=== PATIENT | female | born 2000 | race American Indian/Alaskan Native ===

== ENCOUNTER 2021-05-18 14:21 | Observation (INO) | payer MEDICAID ==
[2021-05-18] MEDS ORDERED: LACTATED RINGERS 500 ML IV ONE (15:58)
[2021-05-18 17:25] LABS: Bacteria,Urine 1+ /HPF (Negative); Bilirubin,Urine NEG (Negative); Blood,Urine NEG (Negative); Color,Urine Yellow (Yellow); Mucus,Urine 3+ /HPF; Urobilinogen,Urine < 2.0 mg/dL (<2.0)
[2021-05-18 17:32] LABS: Alanine Aminotransferase 10 units/L (7-56); Hemoglobin 12.8 gm/dl (10.1-14.3); Mean Corpuscular HGB Conc 34 % (30-34); Mean Corpuscular Volume 90 fl (79-97); Platelet Count 273 K/mm3 (140-440); Red Blood Count 4.22 M/mm3 (3.65-5.03); Red Cell Distribution Width 14.3 % (13.2-15.2); Uric Acid 3.7 mg/dL (3.5-7.6)
[2021-05-18 19:45] VITALS: BP 145/78
== END 2021-05-18 19:25 | disposition home or self-care (01) ==
LOC: TRG 14:21 → APU 14:29 → INTOOBSV 14:29
DX: O13.3 Gestational [pregnancy-induced] hypertension without significant proteinuria, third trimester (principal); Z3A.36 36 weeks gestation of pregnancy
CPT/HCPCS: 36415; 59025; 81001; 82565; 83615; 84450; 84460; 84550; 85027; 86850; 86900; 86901; G0378

== ENCOUNTER 2021-05-24 17:05 | Outpatient (CLI) | payer MEDICAID ==
[2021-05-24 21:25] VITALS: BP 147/77
--- NOTE | 2021-05-24 22:36 | Ultrasound Report ---
ULTRASOUND BIOPHYSICAL PROFILE INDICATION: DIMITRY. COMPARISON: None available. FINDINGS: breathing movement = 2 Gross body movement = 2 tone = 2 Qualitative amniotic fluid volume = 2 Total biophysical score = 8/8 Amniotic fluid index is 14.7 cm. Presentation is Cephalic. heart rate is 135 beats per minute. IMPRESSION: biophysical profile = 04/23 Amniotic fluid index is within normal limits at 14.7 cm. Signer Name: Jaskaran Abdul MD Signed: 05/24/2021 10:32 PM Workstation Name: [id number]
== END 2021-05-24 21:59 | disposition home or self-care (01) ==
LOC: TRG 17:05 → APU 17:07 → TRG 21:59
PROVIDERS: ATTEND Obstetrics & Gynecology
DX: Z34.93 Encounter for supervision of normal pregnancy, unspecified, third trimester (principal); Z3A.37 37 weeks gestation of pregnancy
CPT/HCPCS: 36415; 59025; 76815; 76819; 84112

== ENCOUNTER 2021-05-31 19:08 | Inpatient (IN) | payer MEDICAID ==
[2021-05-31] MEDS ORDERED: OXYTOCIN 10 UNIT/1 ML INJ IM PRN (21:28)
[2021-05-31] MEDS ORDERED: miSOPROStol 200 MCG TAB PR PRN (21:28)
[2021-05-31] MEDS ORDERED: TERBUTALINE 1 MG/1 ML INJ SUB-Q PRN (21:28)
[2021-05-31] MEDS ORDERED: fentaNYL 100 MCG/2 ML INJ IV PRN (21:28)
[2021-05-31] MEDS ORDERED: CARBOPROST TROMETHAMINE 250 MCG/1 ML INJ IM PRN (21:28)
[2021-05-31] MEDS ORDERED: ePHEDrine SULFATE 50 MG/1 ML INJ IV PRN (21:28)
[2021-05-31] MEDS ORDERED: DINOPROSTONE 10 MG VAG SUPP VG ONE (21:28)
[2021-05-31] MEDS ORDERED: ACETAMINOPHEN 325 MG TAB PO PRN (21:28)
[2021-05-31] MEDS ORDERED: MINERAL OIL 30 ML ORAL LIQD PO PRN (21:28)
[2021-05-31] MEDS ORDERED: LIDOCAINE (2%) 20 MG/1 ML VIAL 20 ML MDV INFILTRATI ONE (21:28)
[2021-05-31] MEDS ORDERED: LOPERAMIDE 2 MG CAP PO PRN (21:28)
[2021-05-31] MEDS ORDERED: METHYLERGONOVINE MALEATE 0.2 MG/ML VIAL IM PRN (21:28)
[2021-05-31] MEDS ORDERED: BUTORPHANOL 2 MG/1 ML INJ IV PRN (21:28)
[2021-05-31] MEDS ORDERED: OXYTOCIN DRIP 30 UNITS/500 ML BAG IV SCH (22:00)
[2021-05-31 22:32] LABS: Hematocrit 37.9 % (30.3-42.9); Hemoglobin 12.8 gm/dl (10.1-14.3); Mean Corpuscular HGB Conc 34 % (30-34); Mean Corpuscular Volume 90 fl (79-97); Platelet Count 263 K/mm3 (140-440); Red Blood Count 4.23 M/mm3 (3.65-5.03); Red Cell Distribution Width 14.3 % (13.2-15.2)
[2021-05-31 22:39] LABS: Bilirubin,Urine NEG (Negative); Blood,Urine NEG (Negative); Color,Urine Yellow (Yellow); Mucus,Urine FEW /HPF; Urobilinogen,Urine < 2.0 mg/dL (<2.0)
[2021-05-31] MEDS: LACTATED RINGERS 1,000 ML IV SCH (22:51)
[2021-05-31 22:57] LABS: Alanine Aminotransferase 9 units/L (7-56)
[2021-05-31] MEDS ORDERED: ACETAMINOPHEN 500 MG TAB PO ONE (23:46)
[2021-06-01] MEDS: BUTORPHANOL 2 MG/1 ML INJ IV PRN ×2 (02:00→06:22)
[2021-06-01] MEDS ORDERED: AMPICILLIN/NS 2 GM/100 ML 2 GM/100 ML BAG IV ONE (04:06)
[2021-06-01] MEDS ORDERED: AMPICILLIN/NS 1 GM/50 ML 1 GM/50 ML BAG IV SCH (08:00)
[2021-06-01] MEDS: LACTATED RINGERS 1,000 ML IV SCH (08:37)
--- NOTE | 2021-06-01 09:16 | History and Physical Report ---
History of Present Illness Date of examination: 06/01/21 Date of admission: 05/31/21 19:52 Chief complaint: Pt presented for an IOL r/t CHTN and GDM History of present illness: 20 y/o presented to [facility] @ 38.2 wks for an IOL r/t GDM and CHTN. She denies LOF and VB. Pt admits to active . She initiated her care at [facility] location @ 12 1/7 wks. Pt was co-managed by [facility] for GDM and CHTN with superimposed preeclampsia. She has a hx of anemia, elevated wbcs (12.9), FL/AC 25 @ 20wks, GBS pos, Lagging HC/BCD below 10th %,and varicella NI. Pt was admitted to L&D for an IOL Past History Past Medical History: other (anemia, GDM, CHTN, elevated wbc,varicella NI) Past Surgical History: no surgical history [employer] History: other (pos GBS) Family/Genetic History: diabetes, hypertension, stroke Social history: single, full code - Obstetrical History Expected Date of Delivery: 06/12/21 Actual Gestation: 38 Week(s) 3 Day(s) : 1 Para: 0 Number of Living Children: 0 Medications and Allergies Allergies Allergy/AdvReac Type Severity Reaction Status Date / Time Latex, Natural Rubber Allergy Severe Anaphylaxis Verified 05/18/21 15:57 Active Meds: Active Medications Acetaminophen (Acetaminophen 325 Mg Tab) 650 mg PO Q4H PRN PRN Reason: Pain, Mild (1-3) Butorphanol Tartrate (Butorphanol 2 Mg/1 Ml Inj) 2 mg IV Q2H PRN PRN Reason: Pain , Severe (7-10) Last Admin: 06/01/21 06:22 Dose: 2 mg Documented by: Butorphanol Tartrate (Butorphanol 2 Mg/1 Ml Inj) 1 mg IV Q2H PRN PRN Reason: Pain, Moderate(4-6) LABOR PAIN Carboprost Tromethamine (Carboprost Tromethamine 250 Mcg/1 Ml Inj) 250 mcg IM ONCE PRN PRN Reason: Uterine Bleeding Ephedrine Sulfate (Ephedrine Sulfate 50 Mg/1 Ml Inj) 10 mg IV Q2M PRN PRN Reason: Hypotension Fentanyl (Fentanyl 100 Mcg/2 Ml Inj) 100 mcg IV Q2H PRN PRN Reason: Pain,Severe (7-10) LABOR PAIN Oxytocin/Sodium Chloride (Pitocin/Ns 30 Unit/500ml) 30 units in 500 mls @ 2 mls/hr IV TITR ZULEMA; Protocol Lactated Ringer's (Lactated Ringers) 1,000 mls @ 125 mls/hr IV DIRECT ZULEMA Last Admin: 06/01/21 08:37 Dose: 125 mls/hr Documented by: Oxytocin/Sodium Chloride (Pitocin/Ns 30 Unit/500ml) 30 units in 500 mls @ 40 mls/hr IV TITR ZULEMA; Protocol Ampicillin Sodium (Ampicillin/Ns 1 Gm/50 Ml) 1 gm in 50 mls @ 100 mls/hr IV Q4H ZULEMA; Protocol Last Admin: 06/01/21 08:37 Dose: 100 mls/hr Documented by: Loperamide HCl (Loperamide 2 Mg Cap) 2 mg PO ONCE PRN PRN Reason: give with Hemabate Methylergonovine Maleate (Methylergonovine Maleate 0.2 Mg/Ml Vial) 0.2 mg IM ONCE PRN PRN Reason: Uterine Bleeding Mineral Oil (Mineral Oil 30 Ml Oral Liqd) 30 ml PO QHS PRN PRN Reason: Constipation Misoprostol (Misoprostol 200 Mcg Tab) 800 mcg DE ONCE PRN PRN Reason: Uterine Bleeding Oxytocin (Oxytocin 10 Unit/1 Ml Inj) 10 unit IM ONCE PRN PRN Reason: Uterine Bleeding Terbutaline Sulfate (Terbutaline 1 Mg/1 Ml Inj) 0.25 mg SUB-Q ONCE PRN PRN Reason: Hyperstimulation/Hypertonicity Review of Systems All systems: negative Eyes: deferred Ears, nose, mouth and throat: deferred Breasts: normal Genitourinary: normal appearance Rectal Exam: normal exam-external/orifice - Vital Signs Vital signs: Vital Signs Pulse Pulse Ox 108 H 93 05/31/21 20:13 05/31/21 20:13 Temp Pulse Resp BP Pulse Ox 98.3 F 131 H 139/64 99 06/01/21 02:47 06/01/21 09:13 06/01/21 08:59 06/01/21 09:13 - Physical Exam Breasts: Positive: normal Abdomen: Positive: normal appearance, soft, normal bowel sounds Genitourinary (Female): Positive: normal external genitalia, normal perenium Vulva: both: normal Vagina: Positive: normal moisture Uterus: Positive: enlarged, normal contour, other (GRAVID) Adnexa: both: normal Anus/Rectum: Positive: normal perianal skin Extremities: Positive: normal - Obstetrical FHR: auscultation normal, category 1 Uterine Contraction Monitor Mode: External Cervical Dilatation: 0 Cervical Effacement Percentage: 10 station: -3 Uterine Contraction Pattern: Regular Uterine Tone Measurement Phase: Resting Uterine Contraction Intensity: Strong/Firm Results Result Diagrams: 05/31/21 20:45 05/31/21 20:45 Abnormal lab results 05/31/21 05/31/21 Range/Units 20:45 20:45 WBC 11.8 H (4.5-11.0) K/mm3 Creatinine 0.5 L (0.6-1.2) mg/dL All other labs normal. Assessment and Plan A: IUP@ 38.3 wks GDM CHTN with superimposed preeclampsia Hx Elevated WBC GBS pos Varicella NI p: Admiit to L&D for a cervidil IOL Continuos monitoring GBS protocal FSBS Q4 Offer varicella vaccine pp Notify NICU Anticipate - Patient Problems (1) Supervision of normal IUP (intrauterine ) in primigravida Current Visit: Yes Status: Acute (2) GDM (gestational diabetes mellitus) Current Visit: Yes Status: Acute (3) Chronic hypertension affecting Current Visit: Yes Status: Acute (4) Positive GBS test Current Visit: Yes Status: Acute
[2021-06-01] MEDS ORDERED: LIDOCAINE (2%) 20 MG/1 ML VIAL 20 ML MDV INFILTRATI ONE (09:37)
[2021-06-01] MEDS: OXYTOCIN DRIP 30 UNITS/500 ML BAG IV SCH ×2 (10:02→10:36)
--- NOTE | 2021-06-01 11:07 | Progress Note ---
Assessment and Plan A: IUP@ 38.3 wks GDM with CHTN Pos GBS Hx elevated wbc Varicella NI Tachycardia p: Continue monitoring GBS protocal IVF bolus EKG and UA C&S Offer Varicella PP Anticipate Consulted Dr Benedict - Patient Problems (1) Supervision of normal IUP (intrauterine ) in primigravida Current Visit: Yes Status: Acute (2) GDM (gestational diabetes mellitus) Current Visit: Yes Status: Acute (3) Chronic hypertension affecting Current Visit: Yes Status: Acute (4) Positive GBS test Current Visit: Yes Status: Acute Subjective - Subjective Date of service: 06/01/21 Principal diagnosis: IUP@ 38.3 wks Interval history: 20 y/o presented to [facility] @ 38.2 wks for an IOL r/t GDM and CHTN. She denies LOF and VB. Pt admits to active FM. She initiated her care at [facility] location @ 12 1/7 wks. Pt was co-managed by [facility] for GDM and CHTN with superimposed preeclampsia. She has a hx of anemia, elevated wbcs (12.9), FL/AC 25 @ 20wks, GBS pos, Lagging HC/BCD below 10th %,and varicella NI. Pt was admitted to L&D for an IOL Patient reports: movement normal, contractions Objective - Vital Signs Vital Signs: Vital Signs - 12hr 05/31/21 05/31/21 05/31/21 23:02 23:07 23:12 Temperature Pulse Rate 110 H 123 H 117 H Blood Pressure O2 Sat by Pulse 99 99 99 Oximetry 05/31/21 05/31/21 05/31/21 23:17 23:22 23:27 Temperature Pulse Rate 105 H 121 H 112 H Blood Pressure O2 Sat by Pulse 99 99 99 Oximetry 05/31/21 05/31/21 05/31/21 23:30 23:32 23:37 Temperature 99.2 F Pulse Rate 118 H 134 H Blood Pressure O2 Sat by Pulse 99 100 Oximetry 05/31/21 05/31/21 05/31/21 23:42 23:43 23:47 Temperature Pulse Rate 148 H 142 H 136 H Blood Pressure 146/71 O2 Sat by Pulse 99 99 Oximetry 05/31/21 05/31/21 05/31/21 23:52 23:57 23:59 Temperature Pulse Rate 124 H 126 H 126 H Blood Pressure 143/72 177/89 O2 Sat by Pulse 100 99 Oximetry 06/01/21 06/01/21 06/01/21 00:02 00:07 00:12 Temperature Pulse Rate 134 H 127 H 127 H Blood Pressure O2 Sat by Pulse 99 99 100 Oximetry 06/01/21 06/01/21 06/01/21 00:17 00:22 00:27 Temperature Pulse Rate 127 H 127 H 129 H Blood Pressure O2 Sat by Pulse 100 99 99 Oximetry 06/01/21 06/01/21 06/01/21 00:29 00:32 00:34 Temperature Pulse Rate 126 H 130 H 125 H Blood Pressure 156/85 160/87 O2 Sat by Pulse 98 Oximetry 06/01/21 06/01/21 06/01/21 00:36 00:47 00:52 Temperature Pulse Rate 125 H 114 H 131 H Blood Pressure 150/68 O2 Sat by Pulse 0 L 99 Oximetry 06/01/21 06/01/21 06/01/21 00:57 00:59 01:02 Temperature Pulse Rate 132 H 127 H 130 H Blood Pressure 138/69 O2 Sat by Pulse 99 99 Oximetry 06/01/21 06/01/21 06/01/21 01:07 01:12 01:17 Temperature Pulse Rate 139 H 129 H 132 H Blood Pressure O2 Sat by Pulse 98 98 99 Oximetry 06/01/21 06/01/21 06/01/21 01:22 01:27 01:29 Temperature Pulse Rate 139 H 134 H 127 H Blood Pressure 145/66 O2 Sat by Pulse 99 99 Oximetry 06/01/21 06/01/21 06/01/21 01:32 01:37 01:42 Temperature Pulse Rate 130 H 130 H 130 H Blood Pressure O2 Sat by Pulse 98 99 99 Oximetry 06/01/21 06/01/21 06/01/21 01:47 01:52 01:57 Temperature Pulse Rate 138 H 129 H 130 H Blood Pressure O2 Sat by Pulse 98 99 98 Oximetry 06/01/21 06/01/21 06/01/21 01:59 02:02 02:17 Temperature Pulse Rate 127 H 133 H 140 H Blood Pressure 131/63 O2 Sat by Pulse 98 99 Oximetry 06/01/21 06/01/21 06/01/21 02:22 02:27 02:29 Temperature Pulse Rate 132 H 135 H 136 H Blood Pressure 145/66 O2 Sat by Pulse 99 99 Oximetry 06/01/21 06/01/21 06/01/21 02:32 02:37 02:42 Temperature Pulse Rate 135 H 140 H 142 H Blood Pressure O2 Sat by Pulse 99 99 99 Oximetry 06/01/21 06/01/21 06/01/21 02:47 02:52 02:57 Temperature 98.3 F Pulse Rate 134 H 145 H 132 H Blood Pressure O2 Sat by Pulse 99 98 99 Oximetry 06/01/21 06/01/21 06/01/21 02:59 03:00 03:02 Temperature Pulse Rate 136 H 136 H 142 H Blood Pressure 159/77 145/68 O2 Sat by Pulse 98 Oximetry 06/01/21 06/01/21 06/01/21 03:07 03:12 03:17 Temperature Pulse Rate 129 H 130 H 129 H Blood Pressure O2 Sat by Pulse 97 99 98 Oximetry 06/01/21 06/01/21 06/01/21 03:22 03:27 03:30 Temperature Pulse Rate 131 H 136 H 131 H Blood Pressure 145/67 O2 Sat by Pulse 99 98 Oximetry 06/01/21 06/01/21 06/01/21 03:32 03:37 03:42 Temperature Pulse Rate 134 H 130 H 130 H Blood Pressure O2 Sat by Pulse 98 98 98 Oximetry 06/01/21 06/01/21 06/01/21 03:47 03:52 03:57 Temperature Pulse Rate 128 H 132 H 134 H Blood Pressure O2 Sat by Pulse 97 98 98 Oximetry 06/01/21 06/01/21 06/01/21 03:59 04:02 04:07 Temperature Pulse Rate 131 H 132 H 134 H Blood Pressure 146/67 O2 Sat by Pulse 99 99 Oximetry 06/01/21 06/01/21 06/01/21 04:12 04:17 04:22 Temperature Pulse Rate 131 H 138 H 133 H Blood Pressure O2 Sat by Pulse 99 99 99 Oximetry 06/01/21 06/01/21 06/01/21 04:27 04:29 04:32 Temperature Pulse Rate 130 H 134 H 130 H Blood Pressure 143/66 O2 Sat by Pulse 98 99 Oximetry 06/01/21 06/01/21 06/01/21 04:37 04:42 04:47 Temperature Pulse Rate 131 H 135 H 131 H Blood Pressure O2 Sat by Pulse 98 99 98 Oximetry 06/01/21 06/01/21 06/01/21 04:52 04:57 04:59 Temperature Pulse Rate 131 H 131 H 129 H Blood Pressure 148/65 O2 Sat by Pulse 98 99 Oximetry 06/01/21 06/01/21 06/01/21 05:02 05:07 05:12 Temperature Pulse Rate 130 H 133 H 129 H Blood Pressure O2 Sat by Pulse 99 99 99 Oximetry 06/01/21 06/01/21 06/01/21 05:17 05:22 05:27 Temperature Pulse Rate 129 H 127 H 130 H Blood Pressure O2 Sat by Pulse 99 98 98 Oximetry 06/01/21 06/01/21 06/01/21 05:31 05:32 05:37 Temperature Pulse Rate 130 H 123 H 140 H Blood Pressure 149/67 O2 Sat by Pulse 99 100 Oximetry 06/01/21 06/01/21 06/01/21 05:42 05:47 05:52 Temperature Pulse Rate 130 H 125 H 133 H Blood Pressure O2 Sat by Pulse 100 99 99 Oximetry 06/01/21 06/01/21 06/01/21 05:57 06:00 06:02 Temperature Pulse Rate 131 H 130 H 140 H Blood Pressure 147/72 O2 Sat by Pulse 98 99 Oximetry 06/01/21 06/01/21 06/01/21 06:14 06:19 06:24 Temperature Pulse Rate 136 H 137 H 126 H Blood Pressure O2 Sat by Pulse 98 100 98 Oximetry 06/01/21 06/01/21 06/01/21 06:29 06:30 06:34 Temperature Pulse Rate 121 H 121 H 121 H Blood Pressure 149/66 O2 Sat by Pulse 97 97 Oximetry 06/01/21 06/01/21 06/01/21 06:39 06:44 06:49 Temperature Pulse Rate 121 H 117 H 120 H Blood Pressure O2 Sat by Pulse 98 97 98 Oximetry 06/01/21 06/01/21 06/01/21 06:54 06:59 07:01 Temperature Pulse Rate 122 H 122 H 117 H Blood Pressure 143/62 O2 Sat by Pulse 98 98 Oximetry 06/01/21 06/01/21 06/01/21 07:04 07:09 07:14 Temperature Pulse Rate 120 H 121 H 123 H Blood Pressure O2 Sat by Pulse 99 98 98 Oximetry 06/01/21 06/01/21 06/01/21 07:19 07:26 07:28 Temperature Pulse Rate 126 H 151 H 137 H Blood Pressure 166/86 O2 Sat by Pulse 98 97 Oximetry 06/01/21 06/01/21 06/01/21 07:29 07:31 07:36 Temperature Pulse Rate 137 H 137 H 138 H Blood Pressure 157/67 O2 Sat by Pulse 99 99 Oximetry 06/01/21 06/01/21 06/01/21 07:41 07:46 07:51 Temperature Pulse Rate 140 H 137 H 128 H Blood Pressure O2 Sat by Pulse 100 99 99 Oximetry 06/01/21 06/01/21 06/01/21 07:56 08:01 08:02 Temperature Pulse Rate 134 H 132 H 130 H Blood Pressure 147/68 O2 Sat by Pulse 99 99 Oximetry 06/01/21 06/01/21 06/01/21 08:06 08:11 08:16 Temperature Pulse Rate 133 H 129 H 126 H Blood Pressure O2 Sat by Pulse 99 100 98 Oximetry 06/01/21 06/01/21 06/01/21 08:21 08:26 08:29 Temperature Pulse Rate 128 H 138 H 122 H Blood Pressure 135/60 O2 Sat by Pulse 99 99 Oximetry 06/01/21 06/01/21 06/01/21 08:31 08:36 08:41 Temperature Pulse Rate 134 H 128 H 135 H Blood Pressure O2 Sat by Pulse 99 99 99 Oximetry 06/01/21 06/01/21 06/01/21 08:46 08:53 08:58 Temperature Pulse Rate 130 H 138 H 137 H Blood Pressure O2 Sat by Pulse 98 100 99 Oximetry 06/01/21 06/01/21 06/01/21 08:59 09:03 09:08 Temperature Pulse Rate 134 H 129 H 136 H Blood Pressure 139/64 O2 Sat by Pulse 99 98 Oximetry 06/01/21 06/01/21 06/01/21 09:13 09:18 09:52 Temperature Pulse Rate 131 H 143 H 123 H Blood Pressure O2 Sat by Pulse 99 97 100 Oximetry 06/01/21 06/01/21 06/01/21 09:57 10:02 10:03 Temperature Pulse Rate 81 128 H 134 H Blood Pressure 116/74 O2 Sat by Pulse 100 100 Oximetry 06/01/21 06/01/21 06/01/21 10:07 10:11 10:12 Temperature Pulse Rate 131 H 134 H 133 H Blood Pressure 110/65 O2 Sat by Pulse 100 99 Oximetry 06/01/21 06/01/21 06/01/21 10:16 10:17 10:21 Temperature Pulse Rate 133 H 131 H 131 H Blood Pressure 143/66 128/61 O2 Sat by Pulse 100 Oximetry 06/01/21 06/01/21 06/01/21 10:22 10:27 10:32 Temperature Pulse Rate 130 H 135 H 125 H Blood Pressure O2 Sat by Pulse 100 99 100 Oximetry 06/01/21 06/01/21 06/01/21 10:37 10:38 10:42 Temperature Pulse Rate 122 H 122 H 133 H Blood Pressure 144/63 138/60 O2 Sat by Pulse 99 99 Oximetry 06/01/21 06/01/21 06/01/21 10:47 10:52 10:57 Temperature Pulse Rate 122 H 124 H 118 H Blood Pressure 136/62 O2 Sat by Pulse 100 100 100 Oximetry - Exam Breasts: normal Abdomen: Present: normal appearance, soft, normal bowel sounds Vulva: both: normal Uterus: Present: normal FHR: auscultation normal, category 1 Uterine Contraction Monitor Mode: External Cervical Dilatation: 9 Cervical Effacement Percentage: 100 station: -1 Uterine Contraction Pattern: Regular Uterine Tone Measurement Phase: Resting Uterine Contraction Intensity: Strong/Firm Extremities: normal - Labs Labs: Abnormal Labs 05/31/21 05/31/21 06/01/21 20:45 20:45 10:48 WBC 11.8 H Creatinine 0.5 L POC Glucose 129 H Laboratory Results - last 24 hr 05/31/21 05/31/21 05/31/21 20:45 20:45 20:45 WBC 11.8 H RBC 4.23 Hgb 12.8 Hct 37.9 MCV 90 MCH 30 MCHC 34 RDW 14.3 Plt Count 263 Creatinine 0.5 L Estimated GFR > 60 POC Glucose Uric Acid 4.0 AST 18 ALT 9 Lactate Dehydrogenase 172 Urine Color Urine Turbidity Urine pH Ur Specific [place] Urine Protein Urine Glucose (UA) Urine Ketones Urine Blood Urine Nitrite Urine Bilirubin Urine Urobilinogen Ur Leukocyte Esterase Urine WBC (Auto) Urine RBC (Auto) U Epithel Cells (Auto) Urine Mucus Blood Type B POSITIVE Antibody Screen Negative 05/31/21 05/31/21 06/01/21 22:00 22:18 02:29 WBC RBC Hgb Hct MCV MCH MCHC RDW Plt Count Creatinine Estimated GFR POC Glucose 75 91 Uric Acid AST ALT Lactate Dehydrogenase Urine Color Yellow Urine Turbidity Hazy Urine pH 6.0 Ur Specific [place] 1.014 Urine Protein 30 mg/dl Urine Glucose (UA) Neg Urine Ketones Tr Urine Blood Neg Urine Nitrite Neg Urine Bilirubin Neg Urine Urobilinogen < 2.0 Ur Leukocyte Esterase Lg Urine WBC (Auto) 4.0 Urine RBC (Auto) 2.0 U Epithel Cells (Auto) 4.0 Urine Mucus Few Blood Type Antibody Screen 06/01/21 06/01/21 06:24 10:48 WBC RBC Hgb Hct MCV MCH MCHC RDW Plt Count Creatinine Estimated GFR POC Glucose 103 129 H Uric Acid AST ALT Lactate Dehydrogenase Urine Color Urine Turbidity Urine pH Ur Specific [place] Urine Protein Urine Glucose (UA) Urine Ketones Urine Blood Urine Nitrite Urine Bilirubin Urine Urobilinogen Ur Leukocyte Esterase Urine WBC (Auto) Urine RBC (Auto) U Epithel Cells (Auto) Urine Mucus Blood Type Antibody Screen
--- NOTE | 2021-06-01 11:10 | Procedure Note ---
OB Delivery Note - Delivery Date of Delivery: 06/01/21 Surgeon: TJ GOOD Estimated blood loss: 200cc - Vaginal Delivery presentation: vertex Delivery position: OA Intrapartum events: meconium Delivery induction: cervidil Delivery monitor: external FHT, external uterine Route of delivery: Delivery placenta: spontaneous Delivery cord: 3 umbilical vessels Episiotomy: none Delivery laceration: 1st degree Delivery repair: vicryl Anesthesia: local Delivery comments: of a viable female in OA position. Spontaneous delivery of head and shoulders. Baby immediately to mom's chest for skin to skin contact. Brief delay of cord clamping while NICU nurse dried and stimulated baby. Cord was clamped x 2 and cut. was taken to warmer by NICU nurse for an initial asses 8/9. Spontaneous delivery of an intact placenta with 3CV. FF@ U2 with fundal massage and IV Pitocin. An exploration of tears revealed a 1st degree perineal which was repaired under local anesthesia with a 3-[address]-1. QBL 253cc per nurse. FW 2930 Gms. Mom and baby was left in stable condition with nurses. - A at 1 minute: 8 at 5 minutes: 9 Infant Gender: Female (FW 2930 Gms)
[2021-06-01] MEDS ORDERED: WITCH HAZEL/ GLYCERIN PAD TP PRN (11:30)
[2021-06-01] MEDS ORDERED: oxyCODONE /ACETAMINOPHEN 5-325MG TAB PO PRN (11:30)
[2021-06-01] MEDS ORDERED: PROMETHAZINE 25 MG TAB PO PRN (11:30)
[2021-06-01] MEDS ORDERED: LANOLIN/ZINC/DIMETHICONE (LANSINOH) 7 GM TP PRN (11:30)
[2021-06-01] MEDS ORDERED: PROMETHAZINE 25 MG RECT SUPP PR PRN (11:30)
[2021-06-01] MEDS ORDERED: diphenhydrAMINE 25 MG CAP PO PRN (12:00)
[2021-06-01] MEDS ORDERED: ONDANSETRON 4 MG/2 ML INJ IV PRN (12:00)
[2021-06-01] MEDS: PRENATAL VIT27-FE FUMARATE-FOLIC ACID VIT TAB PO SCH (14:44)
[2021-06-01] MEDS: IBUPROFEN 600 MG TAB PO SCH ×2 (14:44→23:34)
[2021-06-01] MEDS ORDERED: MAGNESIUM HYDROXIDE (MOM) ORAL LIQD UDC PO PRN (22:00)
[2021-06-01 23:48] LABS: Hematocrit 31.5 % (30.3-42.9); Hemoglobin 10.4 gm/dl (10.1-14.3)
[2021-06-02] MEDS: IBUPROFEN 600 MG TAB PO SCH ×2 (05:53→18:25)
--- NOTE | 2021-06-02 13:28 | Electrocardiograph Report ---
[facility] Test Date: 2021-06-01 Test Time: 08:08:13 Pat Name: CARLOS PONCE Department: Room: 2130 Gender: F Poll Clerk: BRITTNI : 2000 Requested By: TJ GOOD Order Number: [id number] Reading MD: Anahy Moyer Measurements Intervals [place] Rate: 132 P: 58 [place]: 149 QRS: 68 QRSD: 73 T: -18 QT: 296 QTc: 438 Interpretive Statements Sinus tachycardia No previous ECG available for comparison Electronically Signed On 06-02-2021 13:28:18 EDT by Anahy Moyer
[2021-06-02] MEDS ORDERED: GENTAMICIN 100 MG in SODIUM CHLORIDE 0.9% 100 ML IV SCH (15:45)
[2021-06-02 16:42] LABS: Basophils % (Auto) 0.3 % (0.0-1.8); Eosinophils # (Auto) 0.1 K/mm3 (0.0-0.4); Eosinophils % (Auto) 0.9 % (0.0-4.3); Hematocrit 30.8 % (30.3-42.9); Hemoglobin 10.2 gm/dl (10.1-14.3); Lymphocytes # (Auto) 3.4 K/mm3 (1.2-5.4); Lymphocytes % (Auto) 25.6 % (13.4-35.0); Mean Corpuscular HGB Conc 33 % (30-34); Mean Corpuscular Volume 91 fl (79-97); Monocytes # (Auto) 1.2 K/mm3 (0.0-0.8); Monocytes % (Auto) 8.8 % (0.0-7.3); Platelet Count 228 K/mm3 (140-440); Red Blood Count 3.37 M/mm3 (3.65-5.03); Red Cell Distribution Width 14.3 % (13.2-15.2)
[2021-06-02] MEDS: AMPICILLIN/NS 2 GM/100 ML 2 GM/100 ML BAG IV SCH (18:15)
[2021-06-02] MEDS: FERROUS SULFATE 325 MG TAB PO SCH ×2 (18:25→22:08)
[2021-06-02] MEDS: PRENATAL VIT27-FE FUMARATE-FOLIC ACID VIT TAB PO SCH (18:25)
[2021-06-02] MEDS: GENTAMICIN/NS 100 MG/100 ML 100 MG/100 ML BAG IV SCH (19:15)
--- NOTE | 2021-06-02 19:46 | Progress Note ---
Assessment and Plan A: day 1 S/P . Anemia. Tachycardia. Possible endometritis. Chronic hypertension. GDM. P: Repeat CBC (previously elevated WBC). Iron supplementation. Ampicillin and Gentamicin ordered. Await urine culture results. Continue to monitor BPs. Subjective - Subjective Date of service: 06/02/21 Principal diagnosis: day 1 S/P Interval history: Started patient on iron supplementation due to anemia. Repeat CBC ordered. Patient with mild sinus tachycardia. Urine culture pending. Patient states she had low grade temp during labor. Patient reports: appetite normal, voiding normally, flatus, ambulating normally, no dizzy ambulation, no nauseated : doing well Objective - Vital Signs Latest vital signs: Vital Signs Temp Pulse Resp BP Pulse Ox Pulse Ox 06/02/21 18:00 99 06/02/21 16:37 98.0 F 112 H 20 134/76 97 06/02/21 16:20 99 06/02/21 14:00 99 06/02/21 12:35 98.3 F 99 H 18 121/70 95 06/02/21 11:42 99 06/02/21 10:00 99 06/02/21 09:12 98.2 F 103 H 18 123/67 98 06/02/21 08:37 99 06/02/21 05:53 20 06/02/21 01:35 97.9 F 105 H 20 137/76 99 06/01/21 23:34 18 06/01/21 21:35 98.3 F 100 H 18 142/72 100 06/01/21 21:15 99 Intake and Output 06/02/21 06/02/21 06/02/21 07:59 15:59 23:59 Intake Total 540 260 Balance 540 260 Intake: Oral 260 Intake, Free Water 540 Other: Total, Intake Amount 260 # Voids Void 1 1 - Exam Cardiovascular: Present: Regular rate Lungs: Present: Clear to auscultation Abdomen: Present: normal appearance, soft, normal bowel sounds. Absent: distention, tenderness, guarding, rigidity Uterus: Present: firm, tenderness, fundal height below umbilicus (FH at 1 FB below umbilicus). Absent: bogginess Extremities: Absent: tenderness - Labs Labs: Abnormal lab results 06/02/21 Range/Units 16:19 WBC 13.1 H (4.5-11.0) K/mm3 RBC 3.37 L (3.65-5.03) M/mm3 [place] % (Auto) 8.8 H (0.0-7.3) % [place] # (Auto) 1.2 H (0.0-0.8) K/mm3 Seg Neutrophils # 8.5 H (1.8-7.7) K/mm3
[2021-06-02 21:33] LABS: Bilirubin,Urine NEG (Negative); Blood,Urine LG (Negative); Color,Urine Yellow (Yellow); Mucus,Urine FEW /HPF; Protein,Urine <15 mg/dL mg/dL (Negative); Urobilinogen,Urine < 2.0 mg/dL (<2.0)
[2021-06-02] MEDS ORDERED: SODIUM CHLORIDE 0.9% 500 ML 500 ML IV SCH (23:45)
[2021-06-03] MEDS: IBUPROFEN 600 MG TAB PO SCH ×3 (00:39→13:30)
[2021-06-03] MEDS: AMPICILLIN/NS 2 GM/100 ML 2 GM/100 ML BAG IV SCH (05:26)
[2021-06-03] MEDS: GENTAMICIN/NS 100 MG/100 ML 100 MG/100 ML BAG IV SCH (06:16)
--- NOTE | 2021-06-03 09:18 | Progress Note ---
Assessment and Plan PPd#2 with endomyometritis resolving on amp and gent 1. Complete antibiotic course later this evening and discharge home tomorrow if pt remains stable 2. Routine care plan o care discussed and pt agreeable. Subjective Date of service: 06/03/21 Principal diagnosis: PPD#2 with resolving endomyometritis Interval history: pt has no complaints and receiving IV antibiotics. Pt voids without dysuria Objective - Constitutional Vitals: Vital Signs - 12hr 06/02/21 06/03/21 06/03/21 22:07 00:33 01:15 Temperature 98.4 F Pulse Rate 101 H Respiratory 20 Rate Blood Pressure 142/77 O2 Sat by Pulse 98 Oximetry O2 Sat by Pulse 97 98 Oximetry [ Bilateral] 06/03/21 06/03/21 06/03/21 02:15 03:25 05:15 Temperature Pulse Rate Respiratory Rate Blood Pressure O2 Sat by Pulse Oximetry O2 Sat by Pulse 98 97 97 Oximetry [ Bilateral] General appearance: Present: no acute distress - Breasts Breasts: normal - Gastrointestinal General gastrointestinal: Present: non-tender - Genitourinary Female genitourinary: other (Uterine fundus non-tender 2cm below the umbilicus) - Neurologic Neurologic: moves all extremities - Psychiatric Psychiatric: cooperative - Labs CBC & Chem 7: 06/02/21 16:19 05/31/21 20:45 Labs: Abnormal lab results 06/02/21 06/02/21 Range/Units 16:19 20:15 WBC 13.1 H (4.5-11.0) K/mm3 RBC 3.37 L (3.65-5.03) M/mm3 [place] % (Auto) 8.8 H (0.0-7.3) % [place] # (Auto) 1.2 H (0.0-0.8) K/mm3 Seg Neutrophils # 8.5 H (1.8-7.7) K/mm3 Urine WBC (Auto) 51.0 H (0.0-6.0) /HPF Medications & Allergies - Medications Allergies/Adverse Reactions: Allergies Latex, Natural Rubber Allergy (Severe, Verified 05/18/21 15:57) Anaphylaxis Home Medications: Home Medications Medication Instructions Recorded Confirmed Last Taken Type Aspirin BABY CHEW TAB 81 mg PO DAILY 06/01/21 06/01/21 05/31/21 10:00 History Ferrous Sulfate 1 tab PO BID 06/01/21 06/01/21 05/31/21 10:00 History Glyburide-Metformin 5-500 mg 500 mg PO BID 06/01/21 06/01/21 05/31/21 10:00 History Vitamin 1 tab PO DAILY 06/01/21 06/01/21 05/31/21 10:00 History Active Medications: Generic Name Dose Route Start Last Admin Trade Name Freq PRN Reason Stop Dose Admin Acetaminophen 650 mg 05/31/21 21:28 Acetaminophen 325 Mg Tab PO Q4H PRN Pain, Mild (1-3) Bisacodyl 10 mg 06/01/21 12:00 Bisacodyl 10 Mg Rect Supp MI BID PRN Constipation Carboprost Tromethamine 250 mcg 05/31/21 21:28 Carboprost Tromethamine 250 Mcg/1 Ml Inj IM ONCE PRN Uterine Bleeding Diphenhydramine HCl 25 mg 06/01/21 12:00 Diphenhydramine 25 Mg Cap PO Q6H PRN Itching Ephedrine Sulfate 10 mg 05/31/21 21:28 Ephedrine Sulfate 50 Mg/1 Ml Inj IV Q2M PRN Hypotension Ferrous Sulfate 325 mg 06/02/21 16:00 06/02/21 22:08 Ferrous Sulfate 325 Mg Tab PO 325 mg BID ZULEMA Administration Lactated Ringer's 1,000 mls @ 125 mls/hr 05/31/21 21:30 06/01/21 08:37 Lactated Ringers IV 125 mls/hr DIRECT ZULEMA Administration Oxytocin/Sodium Chloride 30 units in 500 mls @ 40 mls/hr 05/31/21 22:00 06/01/21 10:36 Pitocin/Ns 30 Unit/500ml IV 40 ml/hr TITR ZULEMA 40 mls/hr Administration Protocol Ampicillin Sodium 2 gm in 100 mls @ 100 mls/hr 06/02/21 16:00 06/03/21 05:26 Ampicillin/Ns 2 Gm/100 Ml IV 100 mls/hr Q6H ZULEMA Administration Protocol Gentamicin Sulfate/Sodium Chloride 100 mg in 100 mls @ 200 mls/hr 06/02/21 16:00 06/03/21 06:16 Gentamicin/Ns 100 Mg/100 Ml IV 200 mls/hr Q8H ZULEMA Administration Clindamycin HCl 900 mg in 50 mls @ 100 mls/hr 06/03/21 00:00 06/03/21 05:43 Cleocin 900 Mg/50 Ml IV 100 mls/hr Q8H ZULEMA Administration Protocol Sodium Chloride 500 mls @ 50 mls/hr 06/02/21 23:45 06/03/21 00:39 Nacl 0.9% 500 Ml IV 06/03/21 09:44 50 mls/hr DIRECT ZULEMA Administration Ibuprofen 600 mg 06/01/21 12:00 06/03/21 05:29 Ibuprofen 600 Mg Tab PO 600 mg Q6H ZULEMA Administration Loperamide HCl 2 mg 05/31/21 21:28 Loperamide 2 Mg Cap PO ONCE PRN give with Hemabate Magnesium Hydroxide 30 ml 06/01/21 22:00 Magnesium Hydroxide (Mom) Oral Liqd Udc PO HS PRN Constipation Methylergonovine Maleate 0.2 mg 05/31/21 21:28 Methylergonovine Maleate 0.2 Mg/Ml Vial IM ONCE PRN Uterine Bleeding Misoprostol 800 mcg 05/31/21 21:28 Misoprostol 200 Mcg Tab MI ONCE PRN Uterine Bleeding Multi-Ingredient Ointment 1 applic 06/01/21 11:30 Lanolin/Zinc/Dimethicone (Lansinoh) 7 Gm TP PRN PRN Sore Nipples Multivitamins/Iron/Calcium 1 each 06/01/21 12:00 06/02/21 18:25 [id number] Fumarate-Folic Acid Vit Tab PO 1 each QDAY ZULEMA Administration Ondansetron HCl 4 mg 06/01/21 12:00 Ondansetron 4 Mg/2 Ml Inj IV Q8H PRN Nausea And Vomiting Oxycodone/Acetaminophen 1 tab 06/01/21 11:30 Oxycodone /Acetaminophen 5-325mg Tab PO Q6H PRN Pain, Moderate (4-6) Oxytocin 10 unit 05/31/21 21:28 Oxytocin 10 Unit/1 Ml Inj IM ONCE PRN Uterine Bleeding Promethazine HCl 25 mg 06/01/21 11:30 Promethazine 25 Mg Rect Supp MI Q6H PRN Nausea And Vomiting Promethazine HCl 25 mg 06/01/21 11:30 Promethazine 25 Mg Tab PO Q6H PRN Nausea And Vomiting Sodium Chloride 10 ml 06/01/21 11:00 Sodium Chloride 0.9% 10 Ml Flush Syringe IV PRN PRN flush Witch Sayra/Glycerin 1 each 06/01/21 11:30 Witch Sayra/ Glycerin Pad TP PRN PRN Hemorrhoid/cleansing/soothing
[2021-06-03] MEDS ORDERED: AMOXICILLIN/K CLAV 875/125MG TAB PO SCH (12:00)
[2021-06-03] MEDS: PRENATAL VIT27-FE FUMARATE-FOLIC ACID VIT TAB PO SCH (13:30)
[2021-06-03] MEDS: FERROUS SULFATE 325 MG TAB PO SCH (13:30)
[2021-06-03 17:07] VITALS: BP 147/77
--- NOTE | 2021-06-03 19:53 | Discharge Summary ---
Providers - Providers Date of Admission: 05/31/21 19:52 Date of discharge: 06/03/21 Attending physician: CUCO ANTHONY MD Primary care physician: CCUO ANTHONY MD Hospitalization Reason for admission: IUP at term (Induction of labor for superimposed preeclampsia on Chronic HTN, Gest DM) Delivery: complications: other (endomyometritis) Discharge diagnosis: IUP at term delivered, other (endomyometritis) baby: female Condition at discharge: Good Disposition: 01 HOME / SELF CARE / HOMELESS - Discharge Diagnoses (1) Normal delivery at term Status: Acute (2) Acute endomyometritis Status: Acute Plan - Discharge Medications Prescriptions: Amoxicillin/Potassium Clav [Augmentin 875-125 Tablet] 1 each PO BID 5 Days #10 tablet Ibuprofen [Motrin] 800 mg PO Q8HR PRN #40 tablet PRN Reason: Pain, Moderate (4-6) - Provider Discharge Summary Activity: routine Diet: routine Instructions: routine Additional instructions: [] Smoking cessation referral if applicable(refer to patient education folder for contact #) [] Refer to [facility]'s [facility] [address] Booklet Call your doctor immediately for: * Fever > 100.5 * Heavy vaginal bleeding ( >1 pad per hour) * Severe persistent headache * Shortness of breath * Reddened, hot, painful area to leg or breast * Drainage or odor from incision. * Keep incision clean and dry at all times and follow doctor's instructions regarding bathing/showering - Follow up plan Follow up: CUCO ANTHONY MD [Primary Care Provider] - 7 Days (Call ob office for follow up appointment) Forms: [facility] Discharge Summary
== END 2021-06-03 19:38 | disposition home or self-care (01) | DRG 774 ==
LOC: EDSTATUS 19:43 → LD 19:52 → OB 06-01 11:47
PROC: 10E0XZZ Delivery of Products of Conception, External Approach (ICD-10-PCS; principal; 2021-06-01)
PROC: 0HQ9XZZ Repair Perineum Skin, External Approach (ICD-10-PCS; 2021-06-01)
PROC: 3E0P7VZ Introduction of Hormone into Female Reproductive, Via Natural or Artificial Opening (ICD-10-PCS; 2021-06-01)
DX: O11.4 Pre-existing hypertension with pre-eclampsia, complicating childbirth (principal); O86.12 Endometritis following delivery; O77.0 Labor and delivery complicated by meconium in amniotic fluid; Z37.0 Single live birth; O24.429 Gestational diabetes mellitus in childbirth, unspecified control; O99.02 Anemia complicating childbirth; D64.9 Anemia, unspecified; O99.824 Streptococcus B carrier state complicating childbirth; Z3A.38 38 weeks gestation of pregnancy; Z20.822 Contact with and (suspected) exposure to COVID-19; Z91.040 Latex allergy status; O70.0 First degree perineal laceration during delivery; B37.9 Candidiasis, unspecified
CPT/HCPCS: 36415; 59200; 81001; 82565; 82962; 83615; 84450; 84460; 84550; 85014; 85018; 85025; 85027; 86850; 86900; 86901; 87086; 88307; 93005; G0378; J0290; J0595; J1580; J2590; J7040; J7120; U0003

== ENCOUNTER 2022-02-27 04:03 | Emergency (ER) | payer SELFPAY ==
[2022-02-27 04:22] VITALS: BP 138/64
--- NOTE | 2022-02-27 09:35 | XRay Report ---
CHEST PA AND LATERAL VIEWS INDICATION: Chest Pain. COMPARISON: None. FINDINGS: Support devices: None. Heart: Within normal limits. Lungs/Pleura: No acute pulmonary or pleural findings. IMPRESSION: 1. No acute findings. Signer Name: Jaskaran Abdul MD Signed: 02/27/2022 9:31 AM Workstation Name: [id number]
[2022-02-27 10:34] LABS: Hematocrit 37.6 % (30.3-42.9); Hemoglobin 12.3 gm/dl (10.1-14.3); Mean Corpuscular HGB Conc 33 % (30-34); Mean Corpuscular Volume 89 fl (79-97); Platelet Count 328 K/mm3 (140-440); Red Blood Count 4.24 M/mm3 (3.65-5.03); Red Cell Distribution Width 12.9 % (13.2-15.2)
[2022-02-27 10:45] LABS: INR 0.87 (0.87-1.13)
[2022-02-27 10:46] LABS: Partial Thromboplastin Time 27.8 Sec. (24.2-36.6)
[2022-02-27 11:07] LABS: Alanine Aminotransferase 18 units/L (7-56); Albumin 4.7 g/dL (3.9-5); BUN/Creatinine Ratio 21; Blood Urea Nitrogen 15 mg/dL (7-17); Calcium 9.6 mg/dL (8.4-10.2); Hemolysis Index 4
[2022-02-27 14:36] LABS: Basophils % (Manual) 0 % (0.0-1.8); Platelet Estimate Consistent w Auto; RBC Morphology Normal; Total Cells Counted 100
--- NOTE | 2022-02-28 09:55 | Electrocardiograph Report ---
[facility] [place] Test Date: 2022-02-27 Test Time: 04:25:40 Pat Name: CARLOS PONCE Department: Room: Gender: F [employer] Apprentice: HOWARD : 2000 Requested By: NAWAF DALY Order Number: [id number] Reading MD: Andrey Pryor Measurements Intervals [place] Rate: 84 P: 42 TN: 165 QRS: 64 QRSD: 74 T: 29 QT: 360 QTc: 434 Interpretive Statements Sinus rhythm Compared to ECG 06/01/2021 08:08:13 Sinus tachycardia no longer present Electronically Signed On 02-28-2022 9:55:17 EDT by Andrey Pryor
== END 2022-02-27 23:20 | disposition left against medical advice (07) ==
LOC: ED 04:03
DX: R07.89 Other chest pain (principal); Z53.21 Procedure and treatment not carried out due to patient leaving prior to being seen by health care provider
CPT/HCPCS: 36415; 71046; 80053; 84484; 85007; 85025; 85610; 85730; 93005